=== PATIENT | male | born 1940 | race Caucasian/White ===

== ENCOUNTER → 2017-11-26 | Outpatient (REF) | payer BC ==
[2017-11-26 17:20] LABS: PSA SCREENING 1.47 NG/ML (< 4.0)
== END ==
LOC: M LABDRAWC 16:57
DX: N40.1 Benign prostatic hyperplasia with lower urinary tract symptoms (principal)
CPT/HCPCS: G0103

== ENCOUNTER 2018-03-23 07:16 | Day surgery (SDC) | payer BC ==
[~2018-03-23 07:16] MED LIST: LIDOCAINE 2% INJ 100 MG/5 ML SDV (FOR ANES.) As Ordered; PROPOFOL 200 MG/20 ML VIAL As Ordered
[2018-03-23] MEDS: NS 1,000 ML IV (07:55)
[2018-03-23] MEDS ORDERED: PROPOFOL 200 MG/20 ML VIAL As Ordered ×2 (09:19)
== END 2018-03-23 10:30 | disposition home or self-care (01) ==
LOC: M OPP 07:16
DX: Z12.11 Encounter for screening for malignant neoplasm of colon (principal); D12.2 Benign neoplasm of ascending colon; D12.3 Benign neoplasm of transverse colon; K63.89 Other specified diseases of intestine; K64.9 Unspecified hemorrhoids; R10.13 Epigastric pain; K22.8 Other specified diseases of esophagus; K31.7 Polyp of stomach and duodenum; K29.70 Gastritis, unspecified, without bleeding; I10 Essential (primary) hypertension; I25.10 Atherosclerotic heart disease of native coronary artery without angina pectoris; Z95.5 Presence of coronary angioplasty implant and graft; Z95.0 Presence of cardiac pacemaker; E78.5 Hyperlipidemia, unspecified; E11.9 Type 2 diabetes mellitus without complications; M10.9 Gout, unspecified; E03.9 Hypothyroidism, unspecified; K21.9 Gastro-esophageal reflux disease without esophagitis; R12 Heartburn; M19.90 Unspecified osteoarthritis, unspecified site; Z88.8 Allergy status to other drugs, medicaments and biological substances; Z79.82 Long term (current) use of aspirin; Z79.899 Other long term (current) drug therapy; Z79.84 Long term (current) use of oral hypoglycemic drugs; Z80.1 Family history of malignant neoplasm of trachea, bronchus and lung
CPT/HCPCS: 45385

== ENCOUNTER 2019-04-26 09:26 | Day surgery (SDC) | payer MEDICARE ==
[~2019-04-26] VITALS: Ht 172.7 cm; Wt 95.7 kg
[~2019-04-26 09:26] MED LIST changes: +ASPI-255 PO; +ATOR40TA75 PO; +CARV12.5 PO; +CBD OIL SL; +GLIP5TAB20 PO; +GLUC1CAP10 PO; +JANU100T PO; +LEVO25TA5 PO; -LIDOCAINE 2% INJ 100 MG/5 ML SDV (FOR ANES.) As Ordered; +LIDOCAINE 2% INJ 100 MG/5 ML SDV (FOR ANES.) As Ordered ONE; +NITR0.4S14 SL; +NS 1,000 ML IV ONE; +OMEP20CA4 PO; -PROPOFOL 200 MG/20 ML VIAL As Ordered; +PROPOFOL 200 MG/20 ML VIAL As Ordered ONE; +VERA180T3 PO; +ZYLO300T6 PO
--- NOTE | 2019-04-26 11:23 | ROOR ---
Patient Name: Benny Saez Procedure Date: 04/26/2019 10:41 AM Date of : 1940 Age: 78 Room: [facility] Gender: Male Note Status: Finalized Procedure: Colonoscopy Indications: High risk colon cancer surveillance: Personal history of colonic polyps Providers: Martin Roach MD Referring MD: Vernell Johnson MD Requesting Provider: Medicines: Monitored Anesthesia Care Complications: No immediate complications. Procedure: Pre-Anesthesia Assessment: - Prior to the procedure, a History and Physical was performed, and patient medications and allergies were reviewed. The patient is competent. The risks and benefits of the procedure and the sedation options and risks were discussed with the patient. All questions were answered and informed consent was obtained. Patient identification and proposed procedure were verified by the physician, the nurse and the anesthesiologist in the procedure room. Mental Status Examination: alert and oriented. Airway Examination: normal oropharyngeal airway and neck mobility. Respiratory Examination: clear to auscultation. CV Examination: normal. Prophylactic Antibiotics: The patient does not require prophylactic antibiotics. Prior Anticoagulants: The patient has taken no previous anticoagulant or antiplatelet agents. ASA Grade Assessment: III - A patient with severe systemic disease. After reviewing the risks and benefits, the patient was deemed in satisfactory condition to undergo the procedure. The anesthesia plan was to use monitored anesthesia care (MAC). Immediately prior to administration of medications, the patient was re-assessed for adequacy to receive sedatives. The heart rate, respiratory rate, oxygen saturations, blood pressure, adequacy of pulmonary ventilation, and response to care were monitored throughout the procedure. The physical status of the patient was re-assessed after the procedure. The Colonoscope was introduced through the anus and advanced to the terminal ileum, with identification of the appendiceal orifice and IC valve. The colonoscopy was performed without difficulty. The patient tolerated the procedure well. The quality of the bowel preparation was good. The terminal ileum, ileocecal valve, appendiceal orifice, and rectum were photographed. Scope insertion time was 3 minutes. Scope withdrawal time was 9 minutes. The total duration of the procedure was 12 minutes. Findings: The perianal and digital rectal examinations were normal. The terminal ileum appeared normal. The ileocecal valve was moderately lipomatous. Biopsies were taken with a cold forceps for histology. Verification of patient identification for the specimen was done by the physician and nurse using the patient's name, date and medical record number. Estimated blood loss was minimal. Three sessile polyps were found in the ascending colon. The polyps were 4 to 6 mm in size. These polyps were removed with a cold snare. Resection and retrieval were complete. Multiple small-mouthed diverticula were found from sigmoid to descending colon. There was no evidence of diverticular bleeding. Non-bleeding external and internal hemorrhoids were found during retroflexion. The hemorrhoids were medium-sized. Impression: - The examined portion of the ileum was normal. - Lipomatous ileocecal valve. Biopsied. - Three 4 to 6 mm polyps in the ascending colon, removed with a cold snare. Resected and retrieved. - Mild diverticulosis from sigmoid to descending colon. There was no evidence of diverticular bleeding. - Non-bleeding external and internal hemorrhoids. Recommendation: - Patient has a contact number available for emergencies. The signs and symptoms of potential delayed complications were discussed with the patient. Return to normal activities tomorrow. Written discharge instructions were provided to the patient. - High fiber diet. - Continue present medications. - Resume aspirin at prior dose today. Refer to primary physician for further adjustment of therapy. - Await pathology results. - Repeat colonoscopy in 3 - 5 years for surveillance based on pathology results. - Telephone GI clinic for pathology results in 2 weeks. - Return to primary care physician. Martin Roach MD Martin Roach MD 04/26/2019 11:23:14 AM Electronically signed by Martin Roach MD Number of Addenda: 0 Note Initiated On: 04/26/2019 10:41 AM Estimated Blood Loss: Estimated blood loss was minimal.
[2019-04-26 11:35] VITALS: BP 180/77
== END 2019-04-26 11:45 | disposition home or self-care (01) ==
LOC: M OPP 09:26
PROVIDERS: ATTEND Internal Medicine Gastroenterology
DX: K64.8 Other hemorrhoids (principal); K63.89 Other specified diseases of intestine; D12.2 Benign neoplasm of ascending colon; K57.30 Diverticulosis of large intestine without perforation or abscess without bleeding; Z86.010 Personal history of colon polyps; I49.9 Cardiac arrhythmia, unspecified; I25.10 Atherosclerotic heart disease of native coronary artery without angina pectoris; I10 Essential (primary) hypertension; E11.9 Type 2 diabetes mellitus without complications; Z79.82 Long term (current) use of aspirin; Z79.899 Other long term (current) drug therapy; Z88.8 Allergy status to other drugs, medicaments and biological substances

== ENCOUNTER → 2021-11-20 | Outpatient (REF) | payer MEDICARE ==
[~2021-11-20] MED LIST changes: -LIDOCAINE 2% INJ 100 MG/5 ML SDV (FOR ANES.) As Ordered ONE; -NS 1,000 ML IV ONE; +OMEP1CAP73 PO; -OMEP20CA4 PO; -PROPOFOL 200 MG/20 ML VIAL As Ordered ONE; -VERA180T3 PO; +VERA180T42 PO
== END ==
LOC: M SFHCCLAY 09:43
PROVIDERS: ATTEND Physician Assistant
DX: Z12.5 Encounter for screening for malignant neoplasm of prostate (principal)

== ENCOUNTER → 2022-12-17 | Outpatient (REF) | payer MEDICARE ==
[2022-12-17 18:22] LABS: HEMATOCRIT 40.2 % (42.0-52.0); HEMOGLOBIN 13.2 g/dl (13.5-17.5); MEAN CORPUSCULAR HEMOGLOBIN 32.2 pg (27.0-33.0); MEAN CORPUSCULAR HGB CONC 32.8 g/dl (32.0-36.5); PLATELET COUNT, AUTOMATED 170 10^3/uL (150-450); WHITE BLOOD COUNT 5.9 10^3/uL (4.0-10.0)
[2022-12-17 18:43] LABS: HEMOGLOBIN A1c 6.9 % (4.0-6.0)
[2022-12-17 18:47] LABS: CREATININE, URINE 193.3 MG/DL; MAU/CREAT RATIO 4.1 MCG/MG (0.0-30.0)
[2022-12-17 18:48] LABS: ALBUMIN 3.8 G/DL (3.2-5.2); ALKALINE PHOSPHATASE 77 U/L (46-116); ALT/SGPT < 9 U/L (7.0-40); AST/SGOT 16 U/L (<34); BILIRUBIN,TOTAL 0.5 MG/DL (0.3-1.2); BLOOD UREA NITROGEN 25 MG/DL (9-23); CALCIUM LEVEL 9.3 MG/DL (8.3-10.6); CARBON DIOXIDE LEVEL 26 MMOL/L (20-31); CHLORIDE LEVEL 107 MMOL/L (98-107); CHOLESTEROL LEVEL 173 MG/DL (<200); CHOLESTEROL RISK RATIO 5.38 (<5); CREATININE FOR GFR 1.62 MG/DL (0.70-1.30); FREE T4 1.02 NG/DL (0.89-1.76); GLOMERULAR FILTRATION RATE 43.9 (>35); GLUCOSE, FASTING 134 MG/DL (74-106); HDL CHOLESTEROL 32.1 MG/DL (>40); LDL CHOLESTEROL 87.3 MG/DL (<100); NON-HDL-C 140.9 MG/DL; POTASSIUM SERUM 5.1 MMOL/L (3.5-5.1); SODIUM LEVEL 140 MMOL/L (136-145); TOTAL PROTEIN 6.4 G/DL (5.7-8.2); TRIGLYCERIDES LEVEL 268 MG/DL (<150); VITAMIN B12 LEVEL 289 PG/ML (211-911)
[2022-12-17 18:49] LABS: THYROID STIMULATING HORMONE 2.434 uIU/ML (0.55-4.78)
[2022-12-19 08:12] LABS: LDL DIRECT 73 mg/dL (0-99)
== END ==
LOC: M LABDRAWC 17:10
DX: E11.22 Type 2 diabetes mellitus with diabetic chronic kidney disease (principal); E03.9 Hypothyroidism, unspecified

== ENCOUNTER → 2022-12-17 | Outpatient (REF) | payer MEDICARE | LOC: M SFHCCLAY 10:04 | PROVIDERS: ATTEND Physician Assistant | DX: Z12.5 Encounter for screening for malignant neoplasm of prostate (principal) ==

== ENCOUNTER 2023-01-16 17:59 | Emergency (ER) | payer MEDICARE ==
[~2023-01-16] VITALS: Ht 177.8 cm; Wt 90.8 kg
[2023-01-16] MEDS ORDERED: SEMA0.257 (18:22)
[2023-01-16] MEDS ORDERED: ROSU10TA6 (18:22)
[2023-01-16] MEDS ORDERED: ALLO300T2 (18:22)
[2023-01-16] MEDS ORDERED: LUBI24CA (18:22)
[2023-01-16] MEDS ORDERED: LEVO50TA5 (18:22)
[2023-01-16] MEDS ORDERED: LOSA100T5 (18:22)
[2023-01-16 19:31] LABS: BASO # 0.1 10^3/uL (0.0-0.2); BASO % 0.7 % (0.0-1.0); EOS # 0.1 10^3/uL (0.0-0.5); EOS % 0.6 % (0.0-3.0); HEMATOCRIT 42.8 % (42.0-52.0); HEMOGLOBIN 14.4 g/dl (13.5-17.5); LYMPH # 1.1 10^3/uL (1.5-5.0); LYMPH % 13.1 % (24.0-44.0); MEAN CORPUSCULAR HEMOGLOBIN 32.5 pg (27.0-33.0); MEAN CORPUSCULAR HGB CONC 33.6 g/dl (32.0-36.5); MEAN CORPUSCULAR VOLUME 96.6 fl (80.0-96.0); MONO # 0.6 10^3/uL (0.0-0.8); MONO % 7.2 % (2.0-8.0); NEUTROPHILS # 6.5 10^3/uL (1.5-8.5); PLATELET COUNT, AUTOMATED 163 10^3/uL (150-450); RED BLOOD COUNT 4.43 10^6/uL (4.30-6.10); WHITE BLOOD COUNT 8.3 10^3/uL (4.0-10.0)
[2023-01-16 19:57] LABS: BILIRUBIN,DIRECT 0.1 MG/DL (<0.4); BILIRUBIN,TOTAL 0.5 MG/DL (0.3-1.2); CALCIUM LEVEL 9.3 MG/DL (8.3-10.6); CREATININE FOR GFR 1.48 MG/DL (0.70-1.30); GLOMERULAR FILTRATION RATE 48.7 (>35); POTASSIUM SERUM 4.8 MMOL/L (3.5-5.1)
[2023-01-16] MEDS ORDERED: NS 500 ML IV ONE (20:20)
[2023-01-16] MEDS ORDERED: ONDANSETRON 4MG 2ML VIAL IV ONE (20:20)
[2023-01-16] MEDS ORDERED: KETOROLAC 30 MG/ML 1ML VIAL IV ONE (20:20)
[2023-01-16] MEDS ORDERED: ONDANSETRON 4MG 2ML VIAL As Ordered ONE (20:20)
[2023-01-16] MEDS ORDERED: KETOROLAC 30 MG/ML 1ML VIAL As Ordered ONE (20:20)
[2023-01-16 21:01] VITALS: TEMP 98
[2023-01-16 21:31] VITALS: BP 137/69; O2SAT 96
[2023-01-16] MEDS ORDERED: TAMSULOSIN 0.4 MG CAP PO ONE (22:05)
[2023-01-16] MEDS ORDERED: OXYCODONE/APAP 5MG/325MG(HOME DOSE PACK) PO ONE (22:05)
[2023-01-16] MEDS ORDERED: PERC5TAB12 PO (22:06)
[2023-01-16] MEDS ORDERED: CEPH500C PO (22:06)
[2023-01-16] MEDS ORDERED: FLOM0.4C39 PO (22:06)
[2023-01-16] MEDS ORDERED: ONDA4TAB6 PO (22:08)
== END 2023-01-16 22:22 | disposition home or self-care (01) ==
LOC: M ED 17:59
DX: N20.1 Calculus of ureter (principal); K80.20 Calculus of gallbladder without cholecystitis without obstruction; N20.0 Calculus of kidney; I25.10 Atherosclerotic heart disease of native coronary artery without angina pectoris; E11.9 Type 2 diabetes mellitus without complications; I10 Essential (primary) hypertension; Z95.5 Presence of coronary angioplasty implant and graft; Z95.0 Presence of cardiac pacemaker; Z79.82 Long term (current) use of aspirin; Z79.84 Long term (current) use of oral hypoglycemic drugs; Z79.899 Other long term (current) drug therapy; Z88.8 Allergy status to other drugs, medicaments and biological substances
CPT/HCPCS: 36415; 74176; 80048; 80076; 81001; 83690; 85025; 96374; 96375; 99284; J1885; J2405

== ENCOUNTER → 2023-01-20 | Outpatient (CLI) | payer MEDICARE ==
[~2023-01-20] MED LIST changes: +ALLO300T2; +CEPH500C PO; +FLOM0.4C39 PO; +LEVO50TA5; +LOSA100T5; +LUBI24CA; +ONDA4TAB6 PO; +PERC5TAB12 PO; +ROSU10TA6; +SEMA0.257
== END ==
LOC: M PLAIMG 14:29
PROVIDERS: ATTEND Physician Assistant
DX: N20.1 Calculus of ureter (principal)

== ENCOUNTER → 2023-11-16 | Outpatient (REF) | payer MEDICARE ==
[~2023-11-16] MED LIST changes: +ONDA-282 PO; -ONDA4TAB6 PO; -ROSU10TA6; +ROSU10TA61
== END ==
LOC: M SFHCCLAY 07:04
PROVIDERS: ATTEND Physician Assistant
DX: Z12.5 Encounter for screening for malignant neoplasm of prostate (principal)

== ENCOUNTER → 2023-12-24 | Outpatient (CLI) | payer MEDICARE | LOC: M CLY 09:48 | PROVIDERS: ATTEND Physician Assistant | DX: Z87.442 Personal history of urinary calculi (principal) ==

== ENCOUNTER → 2024-12-30 | Outpatient (CLI) | payer MEDICARE ==
[~2024-12-30] MED LIST changes: -FLOM0.4C39 PO; +GLIP-318 PO; -GLIP5TAB20 PO; +TAMS-18 PO
== END ==
LOC: M PLALAB 11:35
PROVIDERS: ATTEND Physician Assistant
DX: R97.20 Elevated prostate specific antigen [PSA] (principal)

== ENCOUNTER → 2025-02-03 | Outpatient (REF) | payer MEDICARE | LOC: M SMT 13:08 | PROVIDERS: ATTEND Urology | DX: R97.20 Elevated prostate specific antigen [PSA] (principal); C61 Malignant neoplasm of prostate ==